=== PATIENT | female | born 1970 | race African-American/Black ===

== ENCOUNTER 2024-05-10 22:30 | Emergency (ER) | payer OTHER ==
[2024-05-10] MEDS ORDERED: Famotidine/PF 20 mg/2ml Vial ONE (22:49)
[2024-05-10 23:32] LABS: #Basophils 0.04 10x3/uL (0.0-0.2); #Eosinophils 0.57 10x3/uL (0.0-0.5); #Monocytes 0.73 10x3/uL (0.0-1.1); #Neutrophils 2.67 10x3/uL (1.5-8.4); %Basophils 0.5 % (0.0-2.0); %Eosinophils 7.2 % (0.0-6.0); %Lymphocytes 49.1 % (18.0-47.0); %Monocytes 9.2 % (0.0-10.0); %Neutrophils 33.7 % (40.0-75.0); Hematocrit 43.9 % (34.9-44.5); Hemoglobin 13.9 g/dL (12.0-15.5); Mean Corpuscular HGB CONC 31.7 g/dL (32.0-36.0); Mean Corpuscular Hemoglobin 26.7 pg (27.0-33.0); Mean Corpuscular Volume 84.4 fL (81.6-98.3); Mean Platelet Volume 10.2 fL (7.4-10.4); Platelet Count 276 10x3/uL (150-450); RBC Distribution Width 13.4 % (11.5-14.5); White Blood Cell (WBC) Count 7.9 10x3/uL (3.5-10.5)
[2024-05-10 23:37] LABS: BHCG - Serum Negative (NEGATIVE); Pregs Control Background? CLEAR/WHITE (CLR/WHITE); Pregs Control Bar Appear? YES (CONTROL BAR)
[2024-05-10 23:46] LABS: ALT (SGPT) 23 U/L (8-55); AST (SGOT) 20 U/L (5-34); Albumin 3.6 g/dL (3.5-5.0); Alkaline Phosphatase 62 U/L (40-110); Anion Gap 12 mmol/L (10-20); BUN (Urea Nitrogen) 12 mg/dL (9.8-20.1); Bilirubin, Total 0.2 mg/dL (0.2-1.2); Calc. Creatinine Clearance 0 mL/min (70-130); Calcium 8.8 mg/dL (7.8-10.44); Carbon Dioxide 25 mmol/L (22-29); Chloride 107 mmol/L (98-107); Estimated GFR 80; Globulin 3.3 g/dL (2.4-3.5); Glucose 210 mg/dL (70-105); Lipase 56 U/L (8-78); Potassium 4.2 mmol/L (3.5-5.1); Protein, Total 6.9 g/dL (6.0-8.3); Sodium 140 mmol/L (136-145)
[2024-05-10 23:52] LABS: Troponin I Less than 0.010 ng/mL (< 0.028)
== END 2024-05-11 00:09 | disposition home or self-care (01) ==
LOC: CSHERS 22:30
DX: K80.50 Calculus of bile duct without cholangitis or cholecystitis without obstruction (principal); K80.20 Calculus of gallbladder without cholecystitis without obstruction; I10 Essential (primary) hypertension; J45.909 Unspecified asthma, uncomplicated
CPT/HCPCS: 71045; 76705; 80053; 83690; 84484; 84703; 85025; 93005; 96374; J3490